=== PATIENT | male | born 1985 | race African-American/Black ===

== ENCOUNTER 2020-06-16 05:03 | Emergency (ER) | payer MEDICAID ==
[~2020-06-16] VITALS: Ht 177.8 cm; Wt 191.0 kg
[2020-06-16] MEDS ORDERED: LIDOCAINE 1%/EPI 1:100,000 10 ML VIAL IJ ONE (09:00)
[2020-06-16] MEDS ORDERED: LIDOCAINE HCL/EPINEPHRINE 1%-EPI 1:100,000 20 ML VIAL INFIL NR (09:02)
[2020-06-16 09:49] VITALS: BP 184/117
== END 2020-06-16 09:51 | disposition home or self-care (01) ==
LOC: ER 05:03
DX: Z48.00 Encounter for change or removal of nonsurgical wound dressing (principal); E11.9 Type 2 diabetes mellitus without complications; Z88.8 Allergy status to other drugs, medicaments and biological substances
CPT/HCPCS: 99283; J3490

== ENCOUNTER 2020-06-19 11:12 | Emergency (ER) | payer MEDICAID ==
[~2020-06-19] VITALS: Ht 177.8 cm; Wt 191.4 kg
[2020-06-19 11:16] VITALS: BP 132/91
== END 2020-06-19 11:59 | disposition home or self-care (01) ==
LOC: ER 11:12
DX: Z48.00 Encounter for change or removal of nonsurgical wound dressing (principal)
CPT/HCPCS: 99281

== ENCOUNTER 2020-08-10 07:46 | Emergency (ER) | payer MEDICAID ==
[~2020-08-10] VITALS: Ht 180.3 cm; Wt 195.0 kg
[2020-08-10] MEDS ORDERED: BACITRACIN ZINC OINT UDPKT TOP ONE (09:15)
[2020-08-10] MEDS ORDERED: LIDOCAINE HCL/PF 1% 10 MG/ML 5ML VIAL IJ ONE (09:15)
[2020-08-10] MEDS ORDERED: IBUPROFEN 600MG TABLET PO ONE (09:15)
[2020-08-10 10:39] VITALS: BP 162/80
== END 2020-08-10 10:40 | disposition home or self-care (01) ==
LOC: ER 07:46
DX: L02.212 Cutaneous abscess of back [any part, except buttock and flank] (principal)
CPT/HCPCS: 10060; 99283; J3490

== ENCOUNTER 2021-04-05 09:27 | Emergency (ER) | payer MEDICAID ==
[~2021-04-05] VITALS: Ht 177.8 cm; Wt 193.6 kg
[2021-04-05 10:57] LABS: BASOPHILS % 0.6 % (0.0-2.0); EOSINOPHILS % 3.1 % (0.0-5.0); HEMOGLOBIN. 15.3 g/dL (14.0-18.0); LYMPHOCYTES % 22.4 % (20.0-50.0); MEAN CORPUSCULAR HEMOGLOBIN 27.5 pg (28.0-32.0); MEAN PLATELET VOLUME 6.7 fl (7.4-10.4); MONOCYTES % 7.3 % (2.0-8.0); NEUTROPHILS % 66.6 % (40.0-76.0); PLATELET 245 x1000/uL (130-400); RED BLOOD CELL COUNT 5.55 mill/uL (4.7-6.1); RED CELL DISTRIBUTION WIDTH 14.4 % (11.6-14.6)
[2021-04-05 10:58] LABS: CLARITY URINE CLEAR (CLEAR); KETONES URINE NEGATIVE (NEGATIVE); LEUKOCYTE ESTERASE URINE NEGATIVE (NEGATIVE); NITRITE URINE NEGATIVE (NEGATIVE); OCCULT BLOOD URINE NEGATIVE (NEGATIVE); PROTEIN URINE NEGATIVE (NEGATIVE); SPECIFIC GRAVITY URINE 1.004 (1.005-1.030); UROBILINOGEN URINE 0.2 E.U./dL (0.2-1.0)
[2021-04-05 11:01] LABS: COLOR URINE PALE YELLOW (YELLOW)
[2021-04-05 11:03] LABS: CHLORIDE 104 mEq/L (98-107)
[2021-04-05] MEDS ORDERED: KETOROLAC 15MG/ML VIAL IV SCH (11:30)
[2021-04-05] MEDS ORDERED: IBUP-2029 MT (12:11)
[2021-04-05 12:57] VITALS: BP 135/82
== END 2021-04-05 12:50 | disposition home or self-care (01) ==
LOC: ER 09:27
DX: M54.5 Low back pain (principal); E11.9 Type 2 diabetes mellitus without complications; I10 Essential (primary) hypertension; Z88.8 Allergy status to other drugs, medicaments and biological substances; Z98.890 Other specified postprocedural states
CPT/HCPCS: 36415; 80053; 81003; 85025; 96374; 99283; J1885; Z7610

== ENCOUNTER 2021-12-26 13:33 | Emergency (ER) | payer MEDICAID ==
[~2021-12-26] VITALS: Ht 177.8 cm; Wt 209.0 kg
[~2021-12-26 13:33] MED LIST: IBUP-2029 MT; NAPR-1176 MT
[2021-12-26 13:36] VITALS: BP 153/91
== END 2021-12-26 17:51 | disposition home or self-care (01) ==
LOC: ER 13:33
DX: K29.70 Gastritis, unspecified, without bleeding (principal); E11.9 Type 2 diabetes mellitus without complications; I10 Essential (primary) hypertension; I49.9 Cardiac arrhythmia, unspecified; Z88.5 Allergy status to narcotic agent
CPT/HCPCS: 71046; 93005; 99283

== ENCOUNTER 2022-02-05 11:16 | Emergency (ER) | payer MEDICAID ==
[~2022-02-05] VITALS: Ht 172.7 cm; Wt 175.0 kg
[2022-02-05 11:18] VITALS: BP 119/61
[2022-02-05] MEDS ORDERED: LIDO700A15 TP (11:38)
[2022-02-05] MEDS ORDERED: NAPR-1176 MT (11:38)
== END 2022-02-05 11:52 | disposition home or self-care (01) ==
LOC: ER 11:16
DX: M54.59 Other low back pain (principal); E11.9 Type 2 diabetes mellitus without complications; I10 Essential (primary) hypertension; Z88.8 Allergy status to other drugs, medicaments and biological substances
CPT/HCPCS: 99283